=== PATIENT | male | born 1940 ===

== ENCOUNTER 2022-03-11 08:13 | Emergency (ER) | payer MEDICARE, OTHER, SELFPAY ==
[2022-03-11] VITALS (16 sets, daily range): BP systolic 110–134; BP diastolic 50–90; PULSE 100–143; RESP 13–24; TEMP 37; O2SAT 93–99
--- NOTE | ~2022-03-11 | XR_ITS ---
EXAMINATION: XR chest 2V DATE: 03/11/2022 09:12 INDICATION: Shortness of breath. Recent pacemaker placement. TECHNIQUE: frontal and lateral views of the chest were obtained. COMPARISON: None FINDINGS: Opacities at the bilateral lower lung zones with blunting of the costophrenic angles and posterior davila lci consistent with small bilateral pleural effusions and associated basilar atelectasis versus less likely pneumonia. No pulmonary edema or pneumothorax. Mild cardiomegaly. Median sternotomy wires, ost ial markers and mediastinal surgical clips consistent with prior coronary artery bypass grafting. Lowell l lead pacemaker seen with leads projecting over the expected locations of the right atrium and right ventricle. Moderate thoracic spondylosis. IMPRESSION: 1. Small bilateral pleural effusions with bibasilar atelectasis versus less likely pneumonia. 2. Cardiomegaly. Reviewed, dictated and finalized at location B. VIORAL MEDICAL DIRECTOR IMPRESSION: 1. Small bilateral pleural effusions with bibasilar atelectasis versus less lik melissa pneumonia. 2. Cardiomegaly.
[2022-03-11 08:23] LABS: Glucose Point of Care 102 mg/dl (65-105)
[2022-03-11] MEDS: SODIUM CHLORIDE 0.9% IV 1,000 ML 999 ML IV CONT (08:53)
[2022-03-11 08:55] LABS: Basophils Absolute Auto 0.1 K/mm3 (0.0-0.1); Basophils Percent Auto 0.4 % (0.2-1.2); Eosinophils Percent Auto 0.2 % (0-4.4); Hemoglobin 13.9 g/dL (14.0-18.0); Immature Granulocyte Absolute 0.08 K/mm3 (0.00-0.031); Immature Granulocyte Percent A 0.6 % (0-0.5); Lymphocytes Absolute Auto 0.57 K/mm3 (0.9-3.2); Lymphocytes Percent Auto 4.1 % (18.3-44.2); Mean Corpuscular HGB Conc 30.2 g/dl (32-36); Mean Corpuscular Hemoglobin 29.8 pg (26-34); Mean Corpuscular Volume 98.5 fl (80-100); Mean Platelet Volume 10.1 fl (7.4-10.4); Monocytes Absolute Auto 1.1 K/mm3 (0.1-0.6); Monocytes Percent Auto 7.7 % (2.6-8.5); Neutrophils Absolute Auto 12.2 K/mm3 (1.3-6.7); Platelet Count Result 255 k/mm3 (150-375); Red Blood Count 4.67 M/mm3 (4.6-6.20); Red Cell Distribution Width 19.4 % (11.5-14.5)
[2022-03-11 09:06] LABS: Alanine Aminotransferase 23 U/L (6-50); Albumin Level 3.7 g/dL (3.5-5.1); Alkaline Phosphatase 123 U/L (38-126); Anion Gap 5 mmol/L (8-16); Aspartate Amino Transferase 33 U/L (17-59); Bilirubin,Total 1.1 mg/dL (0.2-1.3); Blood Urea Nitrogen 36 mg/dL (9-20); Calcium 8.9 mg/dL (8.4-10.2); Carbon Dioxide 31 mmol/L (22-30); Chloride 100 mmol/L (98-107); Estimated CRCL calculation 50 ml/min; Estimated Glomerular Filt Rate > 60; Glucose 94 mg/dL (65-110); Lipase 40 U/L (23-300); Sodium 136 mmol/L (137-145)
[2022-03-11 09:20] LABS: NT Pro B Type Natriuretic Pept 19200 pg/mL (19.9-100); Troponin I 0.043 ng/mL (0.000-0.034)
--- NOTE | 2022-03-11 09:20 | ECG_ITS ---
Measurements Intervals Holcomb Rate: 113 P: VA: 0 QRS: -12 QRSD: 88 T: 155 QT: 353 QTc: 485 Interpretive Statements SINUS OR ECTOPIC ATRIAL TACHYCARDIA ELECTRONIC VENTRICULAR PACEMAKER COMPLEXES LEFT VENTRICULAR HYPERTROPHY AND ST-T CHANGE CONSIDER ANTERIOR INFARCT, AGE INDETERMINATE CONSIDER INFERIOR INFARCT, AGE INDETERMINATE ST-T WAVE ABNORMALITY IN LATERAL LEADS- CONSIDER ISCHEMIA BASELINE ARTIFACT- I, II, III, AVR, AVL, AVF ABNORMAL ECG NO PREVIOUS ECG AVAILABLE FOR COMPARISON Electronically Signed On 03-11-2022 10:55:34 PRESS FEEDER by Clement Caballero D.O.
[2022-03-11] MEDS: IPRATROPIUM BR 0.02% INH SOLN 0.5 MG/2.5 ML VIAL 1.5 MG INHALATION (09:44)
[2022-03-11] MEDS: FUROSEMIDE INJ 40 MG/4 ML VIAL IV PUSH (09:47)
[2022-03-11] MEDS: dilTIAZem HCl INJ 25 MG/5 ML VIAL 10 MG IV PUSH (09:47)
[2022-03-11 09:48] LABS: Lactic Acid Reflex 2.3 mmol/L (0.7-2.0)
--- NOTE | 2022-03-11 10:32 | ED.GENADULT ---
HPI - General Adult General Chief complaint: Recheck/Abnormal Lab/Rx Stated complaint: hypoglycemic Time Seen by Provider: 03/11/22 08:16 History of Present Illness HPI narrative: Patient is an 81-year-old male who presents the ER after having hypoglycemia at his long term. He was low in the 50s and only improved to the 70s after glucagon. No history of hypoglycemia. Patient having difficulty giving history as he appears distress upon arrival here. He has coarse rales and wheezes bilaterally. He is diaphoretic. Tachycardic on arrival as well. No complaints of chest pain. Patient has not been at this hospital previously. Related Data Allergies Allergy/AdvReac Type Severity Reaction Status Date / Time lisinopril Allergy Unknown Unknown Verified 03/11/22 08:30 propoxyphene Allergy Unknown Unknown Verified 03/11/22 08:30 Review of Systems Review of Systems: ROS unobtainable: Yes unobtainable due to medical condition PMFSH Past Medical History Medical History (Updated 03/11/22 @ 13:42 by Jimy Cuello MD) Aortic stenosis COPD with asthma Essential hypertension History of pacemaker Surgical History Surgical History (Updated 03/11/22 @ 13:24 by Jimy Cuello MD) History of left heart catheterization Family History Family History (Updated 01/01/17 @ 09:34 by DOCTOR UNKNOWN) Sibling Family history of tuberculosis, Onset Age: 9 Social History Social History Smoking status: Former smoker Smoking end date: 02/17/1959 Exam Narrative: GENERAL: Ill-appearing, well-nourished, and in moderate distress. 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 EYES: PERRL and EOMI. ENT: Mucous membranes moist. CHEST: Clear to auscultation. No respiratory distress. HEART: Tachycardic and regular. Murmur of aortic stenosis noted. Normal peripheral pulses. ABDOMEN: Soft, nontender, nondistendeds. EXTREMITIES: Normal range of motion. No edema. SKIN: Warm, diaphoretic, no rash. NEURO: Alert and oriented x3. PSYCH: Normal mood and affect. Course Course Emergency Course: Patient now has a bed of her [facility] and we will arrange transport. Troponin did go up so patient was started on heparin. He also received a dose of metoprolol as his heart rate was climbing into the 140s and this did improve into the low 100s. Reevaluation(s) Reevaluation #1: Family had arrived at bedside. Apparently patient has a significant history of aortic stenosis and is scheduled to have a TAVR on 03/19/2022. Patient had been admitted to the hospitalist service with concerns for pneumonia as well as volume overload. He was given Lasix and IV antibiotics. Family's been in contact with patient's valve team at [facility] and they would like to have the patient at their facility if possible. I am making efforts to contact them through the transfer line to arrange continuity of care. Patient given a small dose of diltiazem earlier with only minimal improvement in his tachycardia. EKG with an uncertain regular rhythm but I believe he has a sinus rhythm with PACs as his heart rate does have much variability. Patient feels markedly improved after nebulizer treatment and lungs are clear. Date: 03/11/22 Time: 13:25 Reevaluation #2: Accepted by Dr. Mckinley at [facility]. Date: 03/11/22 Time: 13:39 Vital Signs Vital signs: Vital Signs Temperature 98.6 F 03/11/22 08:15 Pulse Rate 143 H 03/11/22 08:15 Respiratory Rate 19 03/11/22 08:15 Blood Pressure 117/50 L 03/11/22 08:15 Pulse Oximetry 98 03/11/22 08:15 Oxygen Delivery Room Air 03/11/22 08:15 Temperature 98.6 F 03/11/22 08:15 Pulse Rate 103 H 03/11/22 18:39 Respiratory Rate 20 03/11/22 18:39 Blood Pressure 117/63 03/11/22 18:39 Pulse Oximetry 97 03/11/22 18:39 Oxygen Delivery Room Air 03/11/22 14:56 Medical Decision Making Vital Signs Vital Signs: Vital Signs Temperature 98.6
[2022-03-11 12:05] LABS: Appearance Urine Clear (Clear); Bilirubin Urine Negative (Negative); Blood Urine Negative (Negative); Color Urine Yellow (Yellow); Glucose Urine UA Negative (Negative); Ketones Urine Negative (Negative); Leukocyte Esterase Ur Trace LEU/UL (Negative); Nitrate Urine Negative (Negative); Protein Urine Negative (Negative); Urobilinogen Urine 0.2 mg/dL (<2.0)
[2022-03-11 12:11] LABS: Bacteria Urine Trace /hpf; Mucus Urine Rare /lpf
[2022-03-11 12:14] LABS: Influenza A QL RT-PCR Negative (Negative); Influenza B QL RT-PCR Negative (Negative); SARS-CoV-2 RNA PCR Negative
[2022-03-11 12:14] LABS: Add Urine Microscopic? YES
[2022-03-11 12:35] LABS: Reflex Lactic Acid Yes or No Add Lactic
[2022-03-11] MEDS: METOPROLOL TARTRATE INJ 5 MG/5 ML VIAL IV PUSH (13:49)
--- NOTE | 2022-03-11 14:18 | PC.NURSE ---
Call received from Geri from [facility] transfer center, pt is accepted at [facility], no bed available at this time will call back when bed is available.
[2022-03-11] MEDS: LEVALBUTEROL NEB 1.25 MG/3 ML 0.63 MG INHALATION ×2 (14:53→20:01)
[2022-03-11] MEDS: IPRATROPIUM BR 0.02% INH SOLN 0.5 MG/2.5 ML VIAL INHALATION ×2 (14:53→20:00)
[2022-03-11 15:09] LABS: INR 1.2; Partial Thromboplastin Time 29.2 SECONDS (22.3-36.8); Prothrombin Time 14.7 Seconds (11.1-14.7)
[2022-03-11] MEDS: HEPARIN SODIUM 5,000 UNITS/ML VIAL 4000 UNITS IV PUSH (15:48)
[2022-03-11] MEDS: HEPARIN SOD/D5W 100 UNITS/ML 25,000 UNITS/250 ML BAG 8 UNITS IV CONT (15:54)
[2022-03-11 17:20] LABS: Troponin I 0.165 ng/mL (0.000-0.034)
--- NOTE | 2022-03-11 18:18 | PC.NURSE ---
[facility] call with bed #[id number]
--- NOTE | 2022-03-11 18:21 | PC.NURSE ---
call controls designer from [facility] from [facility] transfer center, pt is going to be admit to room 926 bed 1. at .
--- NOTE | 2022-03-11 18:27 | PC.NURSE ---
[facility] accepted transfer to [place] [id number]
== END 2022-03-11 20:51 | disposition short-term general hospital (02) ==
PROVIDERS: Emergency Provider Emergency Medicine; PCP Family Medicine
DX: J18.9 Pneumonia, unspecified organism (principal); E87.70 Fluid overload, unspecified; E16.2 Hypoglycemia, unspecified; R79.89 Other specified abnormal findings of blood chemistry; Z20.822 Contact with and (suspected) exposure to COVID-19; I35.0 Nonrheumatic aortic (valve) stenosis; J44.9 Chronic obstructive pulmonary disease, unspecified; I10 Essential (primary) hypertension; R06.2 Wheezing; Z95.0 Presence of cardiac pacemaker; Z87.891 Personal history of nicotine dependence; I51.7 Cardiomegaly
CPT/HCPCS: 36415; 71046; 80053; 81001; 82948; 83605; 83690; 83880; 84484; 85025; 85610; 85730; 87040; 87636; 93005; 94640; 96361; 96365; 96366; 96367; 96375; 99285; J0456; J0696; J1644; J1940; J7030

== ENCOUNTER 2022-10-31 18:35 | Emergency (ER) | payer MEDICARE, SELFPAY ==
[2022-10-31 18:48] VITALS: BP 132/77; PULSE 96; RESP 16; TEMP 36.5; O2SAT 96
--- NOTE | 2022-10-31 19:48 | PC.NURSE ---
Pt to intake desk and states she wants to leave. Pt taken to vehicle by wheelchair
== END 2022-10-31 19:48 | disposition left against medical advice (07) ==
LOC: ANHED 19:54
PROVIDERS: PCP Family Medicine
DX: K59.00 Constipation, unspecified (principal)
CPT/HCPCS: 99199

== ENCOUNTER 2023-03-23 17:40 | Emergency (ER) | payer MEDICARE, SELFPAY ==
--- NOTE | ~2023-03-23 | XR_ITS ---
EXAM: XR abdomen/kub 1V DATE: 03/23/2023 18:54 HISTORY: constipation . COMPARISON: None available. FINDINGS: Partially visualized pacing wires. Intact sternotomy wires. Cardiac valve replacement. Med iastinal surgical clips. Left hemidiaphragm elevation. No organomegaly. Normal bowel gas pattern. Rig ht upper quadrant calcifications may represent cholelithiasis and nephrolithiasis. Pelvic phleboliths . Atherosclerotic calcifications. Rounded calcification over the right lower quadrant may represent a calcified diverticulum. IMPRESSION: No radiographic evidence of obstruction or ileus. Normal volume of colonic feces. Reviewed, dictated and finalized at location K. MENTATION CONSULTANT
[2023-03-23 17:43] VITALS: BP 94/57; PULSE 98; RESP 18; TEMP 36.2; O2SAT 96
[2023-03-23 18:23] LABS: Basophils Absolute Auto 0.1 K/mm3 (0.0-0.1); Basophils Percent Auto 1.1 % (0.2-1.2); Eosinophils Absolute Auto 0.5 K/mm3 (0-0.3); Eosinophils Percent Auto 5.3 % (0-4.4); Hematocrit 49.9 % (42.0-52.0); Hemoglobin 15.6 g/dL (14.0-18.0); Immature Granulocyte Absolute 0.03 K/mm3 (0.00-0.031); Immature Granulocyte Percent A 0.3 % (0-0.5); Lymphocytes Absolute Auto 0.87 K/mm3 (0.9-3.2); Lymphocytes Percent Auto 9.8 % (18.3-44.2); Mean Corpuscular HGB Conc 31.3 g/dl (32-36); Mean Corpuscular Hemoglobin 28.1 pg (26-34); Mean Corpuscular Volume 89.9 fl (80-100); Mean Platelet Volume 9.6 fl (7.4-10.4); Monocytes Absolute Auto 1.3 K/mm3 (0.1-0.6); Monocytes Percent Auto 14.2 % (2.6-8.5); Neutrophils Absolute Auto 6.1 K/mm3 (1.3-6.7); Neutrophils Percent Auto 69.3 % (45.5-73.1); Platelet Count Result 129 k/mm3 (150-375); Red Blood Count 5.55 M/mm3 (4.6-6.20); Red Cell Distribution Width 15.1 % (11.5-14.5); White Blood Count 8.9 K/mm3 (4.5-10.0)
--- NOTE | 2023-03-23 18:30 | ED.ABDPAIN ---
HPI - Abdominal Pain General Chief Complaint: Abdominal Pain Stated Complaint: constipation Time Seen by Provider: 03/23/23 18:07 Source: patient and family Mode of arrival: EMS Limitations: no limitations History of Present Illness HPI narrative: This is a 82 year old male that presents to the ER for constipation. Reports he has been having trouble with constipation the last couple of days. He tried a dose of Miralax and a suppository with little relief. Reports today he started to have associated rectal discomfort which prompted them to call an ambulance. His pain has calmed down since being in the ER. Denies fevers or vomiting. Related Data Allergies Allergy/AdvReac Type Severity Reaction Status Date / Time lisinopril Allergy Unknown Unknown Verified 03/23/23 17:41 propoxyphene Allergy Unknown Unknown Verified 03/23/23 17:41 Review of Systems Review of Systems: CONSTITUTIONAL: Denies fever GASTROINTESTINAL: Reports abdominal pain. Denies nausea, vomiting All systems reviewed & are unremarkable except as noted in HPI and below PMFSH Past Medical History Medical History (Updated 03/23/23 @ 22:01 by Nancy Joyce PA-C) Aortic stenosis COPD with asthma Essential hypertension History of pacemaker Surgical History Surgical History (Updated 03/11/22 @ 13:24 by Jimy Cuello MD) History of left heart catheterization Family History Family History (Updated 01/01/17 @ 09:34 by DOCTOR UNKNOWN) Sibling Family history of tuberculosis, Onset Age: 9 Social History Social History Smoking status: Former smoker Smoking end date: 02/17/1959 Exam Narrative: GENERAL: Elderly, well-nourished, and in no acute distress. HEAD: Normocephalic, atraumatic. EYES: EOMI. CHEST: Clear to auscultation. No respiratory distress. No wheezes rales or rhonchi HEART: Regular rate and rhythm. No murmur heard. Normal peripheral pulses. ABDOMEN: Soft, nontender, nondistended, normal active bowel sounds. EXTREMITIES: Normal range of motion. No edema. SKIN: Warm, dry, no rash. NEURO: No focal deficits. Alert and oriented x3. PSYCH: Normal mood and affect RECTAL: Soft stool present in the rectal vault Course Course Emergency Course: Patient reports successful bowel movement after enema. Reports feeling better. Ready for discharge home Vital Signs Vital signs: Vital Signs Temperature 97.2 F L 03/23/23 17:43 Pulse Rate 98 03/23/23 17:43 Respiratory Rate 18 03/23/23 17:43 Blood Pressure 94/57 L 03/23/23 17:43 Pulse Oximetry 96 03/23/23 17:43 Oxygen Delivery Room Air 03/23/23 17:43 Temperature 97.2 F L 03/23/23 17:43 Pulse Rate 76 03/23/23 21:42 Respiratory Rate 20 03/23/23 21:42 Blood Pressure 168/83 H 03/23/23 21:42 Pulse Oximetry 97 03/23/23 21:42 Oxygen Delivery Room Air 03/23/23 17:43 MDM - Abdominal Pain MDM Narrative Medical decision making narrative: Patient presents to the ER for constipation. Reports he had taken a dose of Miralax and used a suppository with little relief. He is afebrile and nontoxic appearing. First blood pressure soft, this responded to IV fluids. Other vitals are stable. CBC without leukocytosis. Metabolic panel with likely some evidence of dehydration. Patient lightly hydrated in the ED due to history of CHF. UA without evidence of infection. KUB without acute findings. Patient was given a enema with relief. Able to have a successful bowel movement. Reports feeling much better. He was instructed on further care of constipation. He is to follow up with his primary provider. He was given warnings to return to the ER Differential Diagnosis Differential diagnosis: Likely constipation and other (fecal impaction) Lab Data Attestation: I reviewed the patient's lab results. 03/23/23 18:13 03/23/23 18:13 Labs: Lab Results 03/23/23 03/23/23 Range/Units 18:13 20:07 WBC 8.9 (4.5-10.0) K/mm3 R
[2023-03-23 18:35] LABS: Alanine Aminotransferase 46 U/L (6-50); Albumin Level 3.8 g/dL (3.5-5.1); Alkaline Phosphatase 165 U/L (38-126); Anion Gap 9 mmol/L (8-16); Aspartate Amino Transferase 37 U/L (17-59); Blood Urea Nitrogen 48 mg/dL (9-20); Calcium 9.7 mg/dL (8.4-10.2); Carbon Dioxide 24 mmol/L (22-30); Chloride 103 mmol/L (98-107); Estimated CRCL calculation 30 ml/min; Estimated Glomerular Filt Rate 45; Glucose 140 mg/dL (65-110); Lipase 65 U/L (23-300); Potassium 4.3 mmol/L (3.4-5.0); Sodium 136 mmol/L (137-145)
[2023-03-23 18:41] VITALS: BP 105/77; PULSE 83; RESP 17; O2SAT 97
--- NOTE | 2023-03-23 19:16 | PC.NURSE ---
Report received from JAVIER Anthony. Assumed care of patient at this time.
[2023-03-23] MEDS: SODIUM CHLORIDE 0.9% IV 500 ML 125 ML IV CONT (19:47)
[2023-03-23 20:37] LABS: Appearance Urine Clear (Clear); Bilirubin Urine Negative (Negative); Blood Urine Negative (Negative); Color Urine Yellow (Yellow); Glucose Urine UA 3+ mg/dL (Negative); Ketones Urine Negative (Negative); Leukocyte Esterase Ur Negative LEU/UL (Negative); Nitrate Urine Negative (Negative); Protein Urine Negative (Negative); Specific Grav Ur 1.024 (1.001-1.035); Urobilinogen Urine 0.2 mg/dL (<2.0)
[2023-03-23 20:39] VITALS: BP 144/99; PULSE 80; RESP 17; O2SAT 100
[2023-03-23 20:40] LABS: Add Urine Microscopic? NO
[2023-03-23 21:42] VITALS: BP 168/83; PULSE 76; RESP 20; O2SAT 97
[2023-03-23 22:12] VITALS: BP 108/83; PULSE 72; RESP 17; O2SAT 99
== END 2023-03-23 22:23 | disposition home or self-care (01) ==
PROVIDERS: Emergency Provider Physician Assistant; PCP Family Medicine
DX: K59.00 Constipation, unspecified (principal); J44.9 Chronic obstructive pulmonary disease, unspecified; I10 Essential (primary) hypertension; I35.0 Nonrheumatic aortic (valve) stenosis; Z95.0 Presence of cardiac pacemaker
CPT/HCPCS: 36415; 74018; 80053; 81003; 83690; 85025; 96360; 96361; 99284; J7040